=== PATIENT | male | born 1985 | race Caucasian/White ===

== ENCOUNTER 2018-06-14 23:51 | Emergency (ER) | payer SELFPAY ==
[2018-06-14 23:52] VITALS: BP 146/76; PULSE 86; RESP 16; TEMP 36.3; O2SAT 97; BMI 23.7
--- NOTE | 2018-06-15 00:23 | ED.VISSUMM ---
- ER Visit Summary Date of Service: 06/15/18 Chief Complaint: Laceration to the left forearm, right shoulder injury History of Present Illness: The patient is a 33 M who presents for laceration to the left forearm. Patient and his friend were drinking alcohol, and they were cutting wires. The friend accidentally incised the patient's forearm with a blade. He denies a stabbing motion but instead states it was a cutting motion. It bled profusely, and they controlled hemorrhage with pressure. Patient has no bleeding disorders and is not on any blood thinners. He is also complaining of right shoulder injury after falling off a porch one week ago. He states he has not been able to use his arm. He has pain on the. Her shoulder with limited range of motion. He did not seek medical attention because he does not have insurance. Physical Examination: Vital signs: afebrile, hemodynamically stable, no hypoxia on room air General: well nourished, well developed, in no distress Skin: warm, dry, no rash, no pallor HEENT: normocephalic and atraumatic; PERRL, EOMI, moist mucous membranes Cardiovascular: regular rate and rhythm without murmurs, no peripheral edema, 2+ pulses bilateral radial and ulnar pulses Respiratory: No increased work of breathing MSK: 2.5 cm incision to the proximal left forearm on the lateral surface, hematoma proximal to this laceration with no active hemorrhage. Distal sensation motor and circulation are intact in all dermatomes. Right upper extremity shows deformity to the distal clavicle in the region of the AC joint. Tenderness to palpation at this point. Patient is unable to abduct his arm. AIN/PIN/ulnar function intact distally. Supination and pronation/wrist flexion and extension/elbow flexion and extension intact bilateral extremities. Neuro: Awake and alert, oriented ?4. No facial droop, sensation and motor function intact and symmetric Test Results: Clinical Impression(s) from Imaging Studies Shoulder X-Ray 06/15/18 00:22 IMPRESSION: Normal x-ray examination of the shoulder. Electronically Signed: Aleksander Connell MD at 1:55 EDT Tel , Service support , Chest X-Ray 08/25/18 01:30 IMPRESSION: Normal x-ray examination of the chest. Electronically Signed: Aleksander Connell MD at 1:49 EDT Tel , Service support , Emergency Department Course and Treatment: Tetanus was updated. X-ray performed of the right shoulder and the chest to evaluate for any possible rib trauma or pneumothorax, as the patient would not allow me to examine the ribs and states he had bruising to them as well. Patient initially refused the x-rays and then stated he would do the shoulder x-ray but not the chest x-ray. He finally consented to completing the x-rays. X-ray of the shoulder showed no clavicular fracture, shoulder dislocation, or obvious AC joint separation. No pneumothorax or obvious rib trauma on x-ray. Suture set up was prepared, however patient left prior to receiving his sutures. He felt he had waited too long. Patient did not allow me to suture his laceration or reevaluate his right shoulder, as he did have swelling over the distal clavicle that was concerning for AC sprain and would warrant follow-up with an orthopedic doctor. Patient did not wait for me to talk to him further to explain his results or discuss the risks of him leaving without repair of his laceration. Patient did not allow me to discuss the risks of signing out AGAINST MEDICAL ADVICE and did not sign any paperwork. Treatment Plan: [] Disposition: [] Impression: 2.5 cm left forearm laceration, right AC joint sprain, left AGAINST MEDICAL ADVICE This note was generated with [employer] dictation software. It may contain incorrect words, spelling, and punctuation that were not noted in review of the chart prior to signing ED Disposition - Plan for ED Patient: Disposition: Home or Assisted Living Chief Complaint: Laceration Referrals: Care Physician,No Primary [Primary Care Provider] -
--- NOTE | 2018-06-15 00:26 | ED.DCSUM_ITS ---
- ER Visit Summary Date of Service: 06/15/18 Chief Complaint: Laceration to the left forearm, right shoulder injury History of Present Illness: The patient is a 33 M who presents for laceration to the left forearm. Patient and his friend were drinking alcohol, and they were cutting wires. The friend accidentally incised the patient's forearm with a blade. He denies a stabbing motion but instead states it was a cutting motion. It bled profusely, and they controlled hemorrhage with pressure. Patient has no bleeding disorders and is not on any blood thinners. He is also complaining of right shoulder injury after falling off a porch one week ago. He states he has not been able to use his arm. He has pain on the. Her shoulder with limited range of motion. He did not seek medical attention because he does not have insurance. Physical Examination: Vital signs: afebrile, hemodynamically stable, no hypoxia on room air General: well nourished, well developed, in no distress Skin: warm, dry, no rash, no pallor HEENT: normocephalic and atraumatic; PERRL, EOMI, moist mucous membranes Cardiovascular: regular rate and rhythm without murmurs, no peripheral edema, 2 + pulses bilateral radial and ulnar pulses Respiratory: No increased work of breathing MSK: 2.5 cm incision to the proximal left forearm on the lateral surface, hematoma proximal to this laceration with no active hemorrhage. Distal sensation motor and circulation are intact in all dermatomes. Right upper extremity shows deformity to the distal clavicle in the region of the AC joint. Tenderness to palpation at this point. Patient is unable to abduct his arm. AIN/PIN/ulnar function intact distally. Supination and pronation/wrist flexion and extension/elbow flexion and extension intact bilateral extremities. Neuro: Awake and alert, oriented ?4. No facial droop, sensation and motor function intact and symmetric Test Results: Clinical Impression(s) from Imaging Studies Shoulder X-Ray 06/15/18 00:22 IMPRESSION: Normal x-ray examination of the shoulder. Electronically Signed: Aleksander Connell MD at 1:55 EDT Tel , Service support , Chest X-Ray 08/25/18 01:30 IMPRESSION: Normal x-ray examination of the chest. Electronically Signed: Aleksander Connell MD at 1:49 EDT Tel , Service support , Emergency Department Course and Treatment: Tetanus was updated. X-ray performed of the right shoulder and the chest to evaluate for any possible rib trauma or pneumothorax, as the patient would not allow me to examine the ribs and states he had bruising to them as well. Patient initially refused the x- rays and then stated he would do the shoulder x-ray but not the chest x-ray. He finally consented to completing the x-rays. X-ray of the shoulder showed no clavicular fracture, shoulder dislocation, or obvious AC joint separation. No pneumothorax or obvious rib trauma on x-ray. Suture set up was prepared, however patient left prior to receiving his sutures. He felt he had waited too long. Patient did not allow me to suture his laceration or reevaluate his right shoulder, as he did have swelling over the distal clavicle that was concerning for AC sprain and would warrant follow-up with an orthopedic doctor. Patient did not wait for me to talk to him further to explain his results or discuss the risks of him leaving without repair of his laceration. Patient did not allow me to discuss the risks of signing out AGAINST MEDICAL ADVICE and did not sign any paperwork. Treatment Plan: [] Disposition: [] Impression: 2.5 cm left forearm laceration, right AC joint sprain, left AGAINST MEDICAL ADVICE This note was generated with [employer] dictation software. It may contain incorrect words, spelling, and punctuation that were not noted in review of the chart prior to signing ED Disposition - Plan for ED Patient: Disposition: Home or Assisted Living Chief Complaint: Laceration Referrals: Care Physician,No Primary [Primary Care Provider] -
[2018-06-15] MEDS: Diphth,Pertuss(Acell),Tet Vac 0.5 ML Vial IM (01:12)
--- NOTE | 2018-06-15 02:34 | ED.RN ---
patient upset with waiting for period of time. Patient left the ER at This time. Patient dressing dry and intact and wound covered upon leaving the ER
== END 2018-06-15 02:38 | disposition left against medical advice (07) ==
PROVIDERS: Emergency Provider Emergency Medicine
DX: S51.812A Laceration without foreign body of left forearm, initial encounter (principal); S43.51XA Sprain of right acromioclavicular joint, initial encounter; W45.8XXA Other foreign body or object entering through skin, initial encounter; W17.89XA Other fall from one level to another, initial encounter; Y93.9 Activity, unspecified; Y92.9 Unspecified place or not applicable; Y99.9 Unspecified external cause status; Z23 Encounter for immunization; K21.9 Gastro-esophageal reflux disease without esophagitis
CPT/HCPCS: 71046; 73030; 90471; 90715; 99282